=== PATIENT | female | born 1965 | race Caucasian/White ===

== ENCOUNTER 2016-11-13 16:21 | Emergency (ER) | payer MEDICAID ==
[~2016-11-13] VITALS: Ht 162.6 cm; Wt 114.8 kg
[~2016-11-13 16:21] MED LIST: AMOXICILLIN 50500 MG PO; BACTRIM DS 8001 TAB PO; CIPRO 500MG TA500 MG PO; DARVOCET-N 1001 EACH PO; FLEXERIL10 MG PO; IBU-8800 MG PO; LISINOPRIL/HCTZ1 TA3 PO; METFORMIN 500M500 MG PO; METFORMIN500 MG PO; NAPROXEN EC375 MG PO; PHENERGAN 25MG.25 M1 PO; PREDNISONE 20MG20 MG PO; PRILOSEC20 M1 PO; RANITIDINE HCL150 MG PO; TESSALON PERLE100 MG PO; VICODIN 5/500 T1 TAB PO; ZANTAC150 MG PO; ZITHROMAX Z-PA250 M1 PO
[2016-11-13] MEDS ORDERED: LEVOTHYROXIN0.125 MG PO (16:36)
[2016-11-13] MEDS ORDERED: VENTOLIN H0.09 MG/AC IH (16:36)
[2016-11-13] MEDS ORDERED: ALBUTEROL2.5 MG/NEB INH (16:37)
[2016-11-13] MEDS ORDERED: FLONASE 50 MCG16 GM (16:37)
--- NOTE | 2016-11-13 16:52 | [facility]gent Treatment [facility] Report ---
History of Present Issue Date/Time Seen by Provider 11/13/16 1708 Visit Reason Pt arrived:Walked Presenting Problem:FEVER, COUGH, SORE THROAT AND CHEST CONGESTION X 3 DAYS Location if Accident: Onset of symptoms date/time:/ or onset unknown for:MEDICAL HX UNKNOWN Have you (or family members/close friends) recently traveled outside the [place]? N If Yes, where/when: Have you had exposure to infectious disease within the past month? TB? Other? Specify: Patient state that she has been having fever, cough, sinus pain and congestion for several days that has continued to get worse. State that her throat feels swollen and scratchy and has continued to get worse. State that she has taken several over the counter cough medications but nothing has helped ALLERGIES Coded Allergies: No Known Allergies (02/03/15) Home Medications Active Scripts BENZONATATE (Benzonatate) 100 MG PO TID #15 CAP Prov: 06/26/13 Reported Medications Lisinopril & Hctz (Lisinopril-Hctz 10-12.5 MG Tab) 1 TAB PO BID Levothyroxine Sodium (Levothyroxine 0.125MG) 0.125 MG PO DAILY ALBUTEROL (Ventolin Hfa) 1 PUFF IH Q6H6 ALBUTEROL (Albuterol 0.083% Neb) 2.5 MG INH PRN PRN COPD Fluticasone Propionate (Flonase 50 Mcg Nasal [place]) 1 SPRAY NA BID History Medical History General Angina: No NV: No Hypertension? Yes Hyperlipidemia? No CHF? No COPD? Yes Asthma? No Hernia? No CVA? No Seizures? No Diabetes? No UTI? No Stones? Yes GB Disease: No Hepatitis? No Cataracts? No Glaucoma? No MRSA? No TB? No Cancer? No More? No Immunization HX DT/Tetanus > 10 Years Ago Flu Refused Pneumonia Refuses Surgical Hx Previous Surgery?Y DISCECTOMY RIGHT LUMPECTOMY Tubal Ligation FACIAL CYST BACK X 3 NEEDLE ASPIRATION BREAST Family History Family HX Diabetes Yes CAD Yes Hypertension Yes Hyperlipidemia Yes Cancer No TB No Social History Smoking Hx Smoker: Current Every Day Smoker Tobacco: Yes Type Cigarettes Packs/day < 1 Pack Alcohol Alcohol: No Review of Systems All Other Systems Reviewed and Negative ENT nose discharge, nose congestion, throat pain. Respiratory cough Physical Exam Vital Signs Vital Signs Date Time Temp Pulse Resp B/P Pulse O2 O2 Flow FiO2 Ox Delivery Rate 11/13 1633 98.0 89 20 115/63 98 General Appearance normal appearance, WD/WN, no apparent distress Ear, Nose, Throat Throat red, irritated, swollen, drainage noted in back of throat Respiratory Status Yes: trachea midline, chest symmetrical, non tender chest. No: respiratory distress. 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 No Departure Departure Time of Disposition 1720 Disposition DC Home or Self Care(routine) Clinical Impression Primary Impression: Upper respiratory infection Qualifiers: URI type: unspecified URI Qualified Code: J06.9 - Acute upper respiratory infection, unspecified Condition STABLE Referrals [facility] (Family) Patient Instructions Cough, DI for Cough -- Adult, DI for Sinusitis, Sore Throat Additional Instructions * Monitor Temp. Tylenol and/or Ibuprofen as needed. ER if fever is no less than 101 despite alternating Tylenol and Ibuprofen * Encourage fluids, water, Gatorade, powerade, pedialyte if infant/toddler/or child * Warm salt water gargles for throat irritation *Warm fluids *Sore throat lozenges *Sleep elevated *humidifier or vaporizer Follow up IMMEDIATELY for new or worsening of symptoms OR no noticeable improvement over the next 48-72 hours. 911 immediately for any life threatening symptoms such as chest pain or difficulty breathing Discharge Counseling Counseled pt/family regarding diagnosis, medications/RX, home care, follow up needs Prescriptions Current Visit Scripts Azithromycin (Azithromycin 250MG/5ML Oral Susp) 250 mg PO DAILY #50 ML 500mg on day one then 250 mg a day for remainder day 2-5 Prednisone (Prednisone Oral Soln 5MG/5ML) 10 MG PO DAILY #50 ML at 1722
[2016-11-13] MEDS ORDERED: PREDNISONE5 MG/5 ML PO (17:29)
[2016-11-13] MEDS ORDERED: AZITHROMYC200 MG/5 M PO (17:29)
[2016-11-13 17:37] VITALS: BP 115/63
== END 2016-11-13 17:40 | disposition home or self-care (01) ==
LOC: UTC 16:21
DX: J06.9 Acute upper respiratory infection, unspecified (principal); I10 Essential (primary) hypertension; J44.9 Chronic obstructive pulmonary disease, unspecified; F17.210 Nicotine dependence, cigarettes, uncomplicated